=== PATIENT | female | born 1955 | race American Indian/Alaskan Native ===

== ENCOUNTER 2020-09-13 10:29 | Inpatient (IN) | payer MEDICARE ==
[2020-09-13] MEDS ORDERED: PIPERACIL/TAZOBACTA 4.5/NS 100 4.5 GM/100 ML VIAL IV ONE (10:34)
[2020-09-13] MEDS ORDERED: SODIUM CHLORIDE 0.9% 1000 ML IV SOLN IV ONE (10:37)
--- NOTE | 2020-09-13 10:46 | Emergency Department Report ---
ED Altered Mental Status HPI - General Stated Complaint: ALTERED MENTAL STATUS PUI?: No Time Seen by Provider: 09/13/20 10:33 Source: family, EMS, old records reviewed Mode of arrival: Stretcher Limitations: Altered Mental Status - History of Present Illness Initial Comments: Chief complaint: Altered mental status HPI: This is a 64-year-old female with history of Parkinson's disease, [place] syndrome, sacral decubitus ulcer, dementia, cystitis DNR status who presents with lethargy altered mental status low blood sugar, facial droop. Patient is a resident of [facility]. Nursing staff noticed that patient was nonverbal. EMS discovered her laying on her left side. Blood sugar was 33. After receiving dextrose, facial droop resolved. Patient still remained nonverbal. Patient noted to be hypotensive on arrival per EMS. Blood pressure 86/40. According to staff documentation patient had previous surgical debridement of sacral decubitus ulcer. Wound culture positive for Proteus Mirabella's, Streptococcus. Pansensitive organism. Ceftriaxone therapy ordered this month. I obtained additional information from Cleopatra Sudhakar Leslie. Ms. Davis had been at a hospice facility [facility] for one month. She had previously lived with her sister and son. Has been a resident of [facility] 6-7 months ago. Son took patient out of hospice care in order to allow patient to be hospitalized as recommended by SNF nursing staff. Patient stopped eating 2 months ago. Complaint: altered mental status, decreased responsiveness -: unknown (Last known to be at baseline 7 PM last night) Severity: moderate Consistency of Symptoms: waxing and waning Context: other (History of sepsis history of dementia) - Related Data Allergies Allergy/AdvReac Type Severity Reaction Status Date / Time No Known Allergies Allergy Unverified 09/13/20 11:27 ED Review of Systems ROS: Stated complaint: ALTERED MENTAL STATUS Other details as noted in HPI Comment: Unobtainable due to pts medical conditions (Altered mental status) ED Past Medical Hx - Past Medical History Previous Medical History?: Yes Hx Hypertension: Yes Additional medical history: [place] syndrome, Parkinson's disease, dementia, sacral decubitus ulcer - Surgical History Additional Surgical History: Unable to be obtained - Social History Smoking Status: Never Smoker ED Physical Exam - General Limitations: Altered Mental Status General appearance: lethargic, cachectic, other (Appears chronically ill poor eye contact left lateral decubitus position) - Head Head exam: Present: atraumatic, normocephalic - Eye Eye exam: Present: normal appearance - ENT ENT exam: Present: mucous membranes dry - Neck Neck exam: Present: normal inspection, full ROM - Respiratory Respiratory exam: Present: normal lung sounds bilaterally. Absent: respiratory distress, wheezes, rales, rhonchi, accessory muscle use, decreased breath sounds, prolonged expiratory - Cardiovascular Cardiovascular Exam: Present: regular rate, normal rhythm, normal heart sounds - GI/Abdominal GI/Abdominal exam: Present: soft. Absent: distended, tenderness, guarding, rebound, rigid - Extremities Exam Extremities exam: Present: pedal edema - Back Exam Back exam: Present: other (Large stage IV sacral decubitus with copious amount of dark purulent drainage) - Neurological Exam Neurological exam: Present: altered - Psychiatric Psychiatric exam: Present: depressed, flat affect - Skin Skin exam: Present: other (Large stage IV sacral decubitus ulcer with copious dark purulent drainage) ED Course Vital Signs 09/13/20 09/13/20 09/13/20 10:34 10:46 11:01 Temperature Pulse Rate 129 H 114 H 124 H Respiratory 18 16 10 L Rate Blood Pressure 107/77 O2 Sat by Pulse Oximetry 09/13/20 09/13/20 11:15 11:25 Temperature 92.8 F L Pulse Rate 127 H Respiratory 21 Rate Blood Pressure 107/77 O2 Sat by Pulse 100 Oximetry - Lab Data Result diagrams: 09/13/20 12:44 09/13/20 12:44 Lab Results 09/13/20 09/13/20 09/13/20 Range/Units 10:30 11:20 12:44 WBC 5.5 (4.5-11.0) K/mm3 RBC 2.89 L (3.65-5.03) M/mm3 Hgb 7.8 L (10.1-14.3) gm/dl Hct 23.9 L (30.3-42.9) % MCV 83 (79-97) fl MCH 27 L (28-32) pg MCHC 33 (30-34) % RDW 18.8 H (13.2-15.2) % Plt Count 195 (140-440) K/mm3 Add Manual Diff Complete Total Counted 100 Seg Neuts % (Manual) 58.0 (40.0-70.0) % Lymphocytes % (Manual) 37.0 H (13.4-35.0) % Monocytes % (Manual) 5.0 (0.0-7.3) % Nucleated RBC % 5.0 H (0.0-0.9) % Seg Neutrophils # Man 3.2 (1.8-7.7) K/mm3 Band Neutrophils # 0.0 K/mm3 Lymphocytes # (Manual) 2.0 (1.2-5.4) K/mm3 Abs React Lymphs (Man) 0.0 K/mm3 Monocytes # (Manual) 0.3 (0.0-0.8) K/mm3 Eosinophils # (Manual) 0.0 (0.0-0.4) K/mm3 Basophils # (Manual) 0.0 (0.0-0.1) K/mm3 Metamyelocytes # 0.0 K/mm3 Myelocytes # 0.0 K/mm3 Promyelocytes # 0.0 K/mm3 Blast Cells # 0.0 K/mm3 WBC Morphology Not Reportable Hypersegmented Neuts Not Reportable Hyposegmented Neuts Not Reportable Hypogranular Neuts Not Reportable Smudge Cells Not Reportable Toxic Granulation Not Reportable Toxic Vacuolation Not Reportable Dohle Bodies Not Reportable Pelger-Huet Anomaly Not Reportable Susy Rods Not Reportable Platelet Estimate Consistent w auto Clumped Platelets Not Reportable Plt Clumps, EDTA Not Reportable Large Platelets Not Reportable Giant Platelets Not Reportable Platelet Satelliting Not Reportable Plt Morphology Comment Not Reportable RBC Morphology Not Reportable Dimorphic RBCs Not Reportable Polychromasia Not Reportable Hypochromasia Not Reportable Poikilocytosis 1+ Anisocytosis Not Reportable Microcytosis Not Reportable Macrocytosis Not Reportable Spherocytes Not Reportable Pappenheimer Bodies Not Reportable Sickle Cells Not Reportable Target Cells 1+ Tear Drop Cells Not Reportable Ovalocytes Not Reportable Helmet Cells Not Reportable [place] Bodies Not Reportable [place] Rings Not Reportable Cale Cells Not Reportable Bite Cells Not Reportable Crenated Cell Not Reportable Elliptocytes Not Reportable Acanthocytes (Spur) Not Reportable Rouleaux Not Reportable Hemoglobin C Crystals Not Reportable Schistocytes Not Reportable Malaria parasites Not Reportable Danny Bodies Not Reportable Hem Pathologist Commnt No Sodium (137-145) mmol/L Potassium (3.6-5.0) mmol/L Chloride (98-107) mmol/L Carbon Dioxide (22-30) mmol/L Anion Gap mmol/L BUN (7-17) mg/dL Creatinine (0.6-1.2) mg/dL Estimated GFR ml/min BUN/Creatinine Ratio % Glucose (65-100) mg/dL POC Glucose 198 H (70-105) mg/dL Lactic Acid (0.7-2.0) mmol/L Calcium (8.4-10.2) mg/dL Total Bilirubin (0.1-1.2) mg/dL AST (5-40) units/L ALT (7-56) units/L Alkaline Phosphatase (35-129) units/L Total Protein (6.3-8.2) g/dL Albumin (3.9-5) g/dL Albumin/Globulin Ratio % Urine Color Yellow (Yellow) Urine Turbidity Hazy (Clear) Urine pH 5.0 (5.0-7.0) Ur Specific [place] 1.016 (1.003-1.030) Urine Protein <15 mg/dl (Negative) mg/dL Urine Glucose (UA) Neg (Negative) mg/dL Urine Ketones Neg (Negative) mg/dL Urine Blood Neg (Negative) Urine Nitrite Neg (Negative) Urine Bilirubin Neg (Negative) Urine Urobilinogen < 2.0 (<2.0) mg/dL Ur Leukocyte Esterase Neg (Negative) Urine WBC (Auto) 2.0 (0.0-6.0) /HPF Urine RBC (Auto) 1.0 (0.0-6.0) /HPF U Epithel Cells (Auto) 1.0 (0-13.0) /HPF Urine Mucus Few /HPF 09/13/20 09/13/20 Range/Units 12:44 12:44 WBC (4.5-11.0) K/mm3 RBC (3.65-5.03) M/mm3 Hgb (10.1-14.3) gm/dl Hct (30.3-42.9) % MCV (79-97) fl MCH (28-32) pg MCHC (30-34) % RDW (13.2-15.2) % Plt Count (140-440) K/mm3 Add Manual Diff Total Counted Seg Neuts % (Manual) (40.0-70.0) % Lymphocytes % (Manual) (13.4-35.0) % Monocytes % (Manual) (0.0-7.3) % Nucleated RBC % (0.0-0.9) % Seg Neutrophils # Man (1.8-7.7) K/mm3 Band Neutrophils # K/mm3 Lymphocytes # (Manual) (1.2-5.4) K/mm3 Abs React Lymphs (Man) K/mm3 Monocytes # (Manual) (0.0-0.8) K/mm3 Eosinophils # (Manual) (0.0-0.4) K/mm3 Basophils # (Manual) (0.0-0.1) K/mm3 Metamyelocytes # K/mm3 Myelocytes # K/mm3 Promyelocytes # K/mm3 Blast Cells # K/mm3 WBC Morphology Hypersegmented Neuts Hyposegmented Neuts Hypogranular Neuts Smudge Cells Toxic Granulation Toxic Vacuolation Dohle Bodies Pelger-Huet Anomaly Susy Rods Platelet Estimate Clumped Platelets Plt Clumps, EDTA Large Platelets Giant Platelets Platelet Satelliting Plt Morphology Comment RBC Morphology Dimorphic RBCs Polychromasia Hypochromasia Poikilocytosis Anisocytosis Microcytosis Macrocytosis Spherocytes Pappenheimer Bodies Sickle Cells Target Cells Tear Drop Cells Ovalocytes Helmet Cells [place] Bodies [place] Rings Cale Cells Bite Cells Crenated Cell Elliptocytes Acanthocytes (Spur) Rouleaux Hemoglobin C Crystals Schistocytes Malaria parasites Danny Bodies Hem Pathologist Commnt Sodium 160 H (137-145) mmol/L Potassium 3.3 L (3.6-5.0) mmol/L Chloride 125.9 H (98-107) mmol/L Carbon Dioxide 23 (22-30) mmol/L Anion Gap 14 mmol/L BUN 65 H (7-17) mg/dL Creatinine 0.5 L (0.6-1.2) mg/dL Estimated GFR > 60 ml/min BUN/Creatinine Ratio 130 % Glucose 64 L (65-100) mg/dL POC Glucose (70-105) mg/dL Lactic Acid 1.30 (0.7-2.0) mmol/L Calcium 7.3 L (8.4-10.2) mg/dL Total Bilirubin 1.10 (0.1-1.2) mg/dL AST 2763 H (5-40) units/L ALT 452 H (7-56) units/L Alkaline Phosphatase 2059 H (35-129) units/L Total Protein 5.9 L (6.3-8.2) g/dL Albumin 2.4 L (3.9-5) g/dL Albumin/Globulin Ratio 0.7 % Urine Color (Yellow) Urine Turbidity (Clear) Urine pH (5.0-7.0) Ur Specific [place] (1.003-1.030) Urine Protein (Negative) mg/dL Urine Glucose (UA) (Negative) mg/dL Urine Ketones (Negative) mg/dL Urine Blood (Negative) Urine Nitrite (Negative) Urine Bilirubin (Negative) Urine Urobilinogen (<2.0) mg/dL Ur Leukocyte Esterase (Negative) Urine WBC (Auto) (0.0-6.0) /HPF Urine RBC (Auto) (0.0-6.0) /HPF U Epithel Cells (Auto) (0-13.0) /HPF Urine Mucus /HPF - EKG Data -: EKG Interpreted by Id 09/13/20 14:23 EKG obtained 1412 EKG interpreted by la Atrial fibrillation ventricular rate rate [address] elevation prolonged QTC nonspecific T wave pattern - Medical Decision Making 1. Acute metabolic encephalopathy due to sepsis uremia hyponatremia. Upon EMS arrival patient had hypoglycemia and hypotension. Patient received dextrose via EMS. Sepsis protocol initiated. I anticipate improvement of patient's mental status once appropriately resuscitated. Considering patient's end-stage Parkinson's disease, I do not feel extensive neurological evaluation including CT and MRI of the brain would be prudent. I also suspect poor p.o. intake contributing to hypoglycemia. Son explained that patient had stopped eating recently. 2. Infected sacral decubitus ulcer 3. DNR Status: I discussed plan of care with son Mr. Sudhakar Leslie . I had a 20 minute conversation with son. 4. new onset atrial fibrillation: Considering comorbidities supportive care indicated 5. WALDEMAR: vasmotor nephropathy due to volume contraction and sepsis, Critical Care Time: Yes Critical care time in (mins) excluding proc time.: 40 Critical care attestation.: If time is entered above; I have spent that time in minutes in the direct care of this critically ill patient, excluding procedure time. 40 minutes of critical care time excluding procedures were used in the care of the patient. I came immediately to the bedside upon patient's arrival. I obtained history from EMS at the bedside. I discussed treatment plan with the nursing team members. I reviewed electronic record. I sopke extensively with son. Patient required multiple interventions and reassessments. ED Disposition Clinical Impression: Acute kidney injury, Severe dehydration, New onset atrial fibrillation, Septic shock, DNR (do not resuscitate), Sacral decubitus ulcer, stage IV, Infected decubitus ulcer, Decubitus ulcer, stage 4 with infection Disposition: 09 OP ADMIT IP TO THIS HOSP Is pt being admited?: Yes Does the pt Need Aspirin: No Condition: Fair Referrals: PRIMARY CARE, [Primary Care Provider] - 3-5 Days
[2020-09-13] MEDS ORDERED: VANCOMYCIN PHARMACY TO DOSE IV SCH ×2 (11:00→22:00)
[2020-09-13] MEDS ORDERED: VANCOMYCIN 1,000 MG in SODIUM CHLORIDE 0.9% 500 ML 500 ML IV ONE (11:00)
[2020-09-13] MEDS ORDERED: VANCOMYCIN/NS 1 GM/250 ML 1 GM/250 ML BAG IV ONE (11:00)
[2020-09-13 11:26] LABS: Bilirubin,Urine NEG (Negative); Blood,Urine NEG (Negative); Color,Urine Yellow (Yellow); Mucus,Urine FEW /HPF; Protein,Urine <15 mg/dL mg/dL (Negative); Urobilinogen,Urine < 2.0 mg/dL (<2.0)
--- NOTE | 2020-09-13 11:55 | XRay Report ---
CHEST 1 VIEW 09/13/2020 11:18 AM INDICATION / CLINICAL INFORMATION: sepsis. COMPARISON: None available. FINDINGS: SUPPORT DEVICES: None. HEART / MEDIASTINUM: No significant abnormality. LUNGS / PLEURA: No significant pulmonary or pleural abnormality. No pneumothorax. ADDITIONAL FINDINGS: Significant amount of air in the upper abdomen. Some of this could represent air directly into the diaphragm. IMPRESSION: 1. Significant amount of air in the upper abdomen. Some of this could represent pneumoperitoneum, alt ernatively this could represent considerable, diffuse gaseous distention of the bowel in this region. Recommend clinical correlation and further evaluation with CT abdomen pelvis. CRITICAL RESULT: Time of Discovery (HAND WORKER/CDT): 1040 Time of Communication (HAND WORKER/CDT): 1045 Licensed Practitioner Receiving Report: MD Wanda Read-Back Performed: Yes. Signer Name: Romario Aranda MD Signed: 09/13/2020 11:50 AM Workstation Name: [id number]
[2020-09-13 13:20] LABS: Hematocrit 23.9 % (30.3-42.9); Hemoglobin 7.8 gm/dl (10.1-14.3); Mean Corpuscular HGB Conc 33 % (30-34); Mean Corpuscular Volume 83 fl (79-97); Platelet Count 195 K/mm3 (140-440); Red Blood Count 2.89 M/mm3 (3.65-5.03); Red Cell Distribution Width 18.8 % (13.2-15.2)
[2020-09-13] MEDS ORDERED: SODIUM CHLORIDE 0.9% 1000 ML 1,000 ML IV ONE (13:52)
[2020-09-13 14:05] LABS: Alanine Aminotransferase 452 units/L (7-56); Albumin 2.4 g/dL (3.9-5); BUN/Creatinine Ratio 130; Blood Urea Nitrogen 65 mg/dL (7-17); Calcium 7.3 mg/dL (8.4-10.2); Hemolysis Index 5
[2020-09-13 14:08] LABS: Platelet Estimate Consistent w Auto; Poikilocytosis 1+; Target Cells 1+; Total Cells Counted 100
--- NOTE | 2020-09-13 16:32 | Cat Scan Report ---
CT CHEST, ABDOMEN, AND PELVIS WITH CONTRAST INDICATION / CLINICAL INFORMATION: Malaise. Hypocalcemia. TECHNIQUE: Axial CT images were obtained through the chest, abdomen, and pelvis after IV contrast. Al l CT scans at this location are performed using CT dose reduction for ALARA by means of automated exp osure control. COMPARISON: None available. FINDINGS: HEART/VASCULAR STRUCTUES: Incidental bilateral pulmonary emboli right greater than left with clot bur den being moderate. MEDIASTINUM / VIVI: No significant abnormality. PLEURA: No pleural effusion. No pneumothorax. LUNGS: No acute air space or interstitial disease. ADDITIONAL CHEST FINDINGS: Diffuse soft tissue anasarca. LIVER: Not well evaluated due to arterial phase of injection. Mild heterogeneity. This is possibly du e to passive venous congestion. GALLBLADDER: No significant abnormality. BILE DUCTS: No significant abnormality. PANCREAS: No significant abnormality. SPLEEN: No significant abnormality. ADRENALS: No significant abnormality. RIGHT KIDNEY / URETER: No significant abnormality. LEFT KIDNEY / URETER: No significant abnormality. STOMACH and SMALL BOWEL: No significant abnormality. COLON: Prominently distended. Suspected fecal impaction. APPENDIX: Not evaluated. PERITONEUM: No free fluid. No free air. No fluid collection. LYMPH NODES: No significant adenopathy. VASCULAR STRUCTURES: No significant abnormality. URINARY BLADDER: No significant abnormality. REPRODUCTIVE ORGANS: No significant abnormality. ADDITIONAL FINDINGS: Extensive soft tissue anasarca. Decubitus ulcer posteriorly. Mildly sclerotic un derlying bone may represent osteomyelitis. Soft tissue air and small amount of air along the inferior aspect of the thecal sac. No well-defined collection SKELETAL SYSTEM: No significant abnormality. IMPRESSION: 1. Incidental bilateral pulmonary emboli. 2. Prominent colonic ileus with possible fecal impaction. 3. Prominent diffuse soft tissue anasarca. 4. Liver not well evaluated. Suspect passive venous congestion. 5. Decubitus ulcer with suspected chronic underlying osteomyelitis. Mild soft tissue air and air tommy g the inferior aspect of the thecal sac. CRITICAL RESULT: Time of Discovery: 3:15 PM Time of Communication: 3:20 PM Licensed Practitioner Receiving Report: Dr. Gilliam Read Back Performed: Yes. Signer Name: Rigo Fleming MD Signed: 09/13/2020 4:28 PM Workstation Name: [email or web address]
[2020-09-13 20:05] VITALS: BP 87/54
--- NOTE | 2020-09-13 21:29 | History and Physical Report ---
History of Present Illness Date of examination: 09/13/20 Date of admission: 09/13/20 16:47 Chief complaint: AMS History of present illness: 64-year-old female with severe history of parkinsonism for the last 25 years and progressively worsening brought in by EMS from assisted for decreased responsiveness. Patient at the bedside. Patient has been progressively deteriorating over the last 25 years. Was made hospice in the last few months and then hospice was discontinued and was admitted long term facility at [facility]. Patient has sacral decubitus ulcers with wound debridement. Patient has been having very poor p.o. intake and severe loss of weight over the last 6 months. The patient and the son decided not to have a PEG tube or any other int ervention regarding the nutrition. Now patient is with decreased responsiveness and not alert or oriented. Patient is contracted all over and looks cachectic. Sacral decubitus ulcers present. - Past Medical History Previous Medical History?: Yes Hx Hypertension: Yes Severe Parkinson's disease Sacral decubitus ulcers Malnutrition Cachexia Poor p.o. 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 Review of Systems ROS: Patient is unresponsive Multiple contractures Decreased breathing Patient is DNR Medications and Allergies Allergies Allergy/AdvReac Type Severity Reaction Status Date / Time No Known Allergies Allergy Unverified 09/13/20 11:27 Active Meds: Active Medications Vancomycin HCl 500 mg/ Sodium (Chloride) 110 mls @ 66.667 mls/hr IV Q12H DIAZ Exam - Constitutional Vitals: Temp Pulse Resp BP Pulse Ox 92.8 F L 101 H 18 87/54 100 09/13/20 11:25 09/13/20 19:45 09/13/20 19:45 09/13/20 19:45 09/13/20 19:31 General appearance: Present: mild distress, cachectic - EENT Eyes: Present: PERRL ENT: hearing intact, clear oral mucosa - Neck Neck: Present: supple, normal ROM - Respiratory Respiratory effort: normal Respiratory: bilateral: CTA - Cardiovascular Heart rate: 70 Rhythm: regular Heart Sounds: Present: S1 & S2. Absent: rub, click - Extremities Extremities: pulses symmetrical, No edema, abnormal (Contractures in both upper extremities and lower extremities) Extremity abnormal: edema (Pedal edema present), other (Contractures in both upper and lower extremities) Peripheral Pulses: within normal limits - Abdominal General gastrointestinal: Present: soft, non-tender, non-distended, normal bowel sounds Female genitourinary: Present: normal - Integumentary Integumentary: Present: clear, warm, dry - Musculoskeletal Musculoskeletal: generalized weakness, other (Multiple contractures) - Psychiatric Psychiatric: other (Unresponsive and lethargic) - Neurologic Neurologic: other (unresponsive and lethargic) Results - Labs CBC & Chem 7: 09/13/20 12:44 09/13/20 12:44 Labs: Laboratory Last Values WBC 5.5 K/mm3 (4.5-11.0) 09/13/20 12:44 RBC 2.89 M/mm3 (3.65-5.03) L 09/13/20 12:44 Hgb 7.8 gm/dl (10.1-14.3) L 09/13/20 12:44 Hct 23.9 % (30.3-42.9) L 09/13/20 12:44 MCV 83 fl (79-97) 09/13/20 12:44 MCH 27 pg (28-32) L 09/13/20 12:44 MCHC 33 % (30-34) 09/13/20 12:44 RDW 18.8 % (13.2-15.2) H 09/13/20 12:44 Plt Count 195 K/mm3 (140-440) 09/13/20 12:44 Add Manual Diff Complete 09/13/20 12:44 Total Counted 100 09/13/20 12:44 Seg Neuts % (Manual) 58.0 % (40.0-70.0) 09/13/20 12:44 Lymphocytes % (Manual) 37.0 % (13.4-35.0) H 09/13/20 12:44 Monocytes % (Manual) 5.0 % (0.0-7.3) 09/13/20 12:44 Nucleated RBC % 5.0 % (0.0-0.9) H 09/13/20 12:44 Seg Neutrophils # Man 3.2 K/mm3 (1.8-7.7) 09/13/20 12:44 Band Neutrophils # 0.0 K/mm3 09/13/20 12:44 Lymphocytes # (Manual) 2.0 K/mm3 (1.2-5.4) 09/13/20 12:44 Abs React Lymphs (Man) 0.0 K/mm3 09/13/20 12:44 Monocytes # (Manual) 0.3 K/mm3 (0.0-0.8) 09/13/20 12:44 Eosinophils # (Manual) 0.0 K/mm3 (0.0-0.4) 09/13/20 12:44 Basophils # (Manual) 0.0 K/mm3 (0.0-0.1) 09/13/20 12:44 Metamyelocytes # 0.0 K/mm3 09/13/20 12:44 Myelocytes # 0.0 K/mm3 09/13/20 12:44 Promyelocytes # 0.0 K/mm3 09/13/20 12:44 Blast Cells # 0.0 K/mm3 09/13/20 12:44 WBC Morphology Not Reportable 09/13/20 12:44 Hypersegmented Neuts Not Reportable 09/13/20 12:44 Hyposegmented Neuts Not Reportable 09/13/20 12:44 Hypogranular Neuts Not Reportable 09/13/20 12:44 Smudge Cells Not Reportable 09/13/20 12:44 Toxic Granulation Not Reportable 09/13/20 12:44 Toxic Vacuolation Not Reportable 09/13/20 12:44 Dohle Bodies Not Reportable 09/13/20 12:44 Pelger-Huet Anomaly Not Reportable 09/13/20 12:44 Susy Rods Not Reportable 09/13/20 12:44 Platelet Estimate Consistent w auto 09/13/20 12:44 Clumped Platelets Not Reportable 09/13/20 12:44 Plt Clumps, EDTA Not Reportable 09/13/20 12:44 Large Platelets Not Reportable 09/13/20 12:44 Giant Platelets Not Reportable 09/13/20 12:44 Platelet Satelliting Not Reportable 09/13/20 12:44 Plt Morphology Comment Not Reportable 09/13/20 12:44 RBC Morphology Not Reportable 09/13/20 12:44 Dimorphic RBCs Not Reportable 09/13/20 12:44 Polychromasia Not Reportable 09/13/20 12:44 Hypochromasia Not Reportable 09/13/20 12:44 Poikilocytosis 1+ 09/13/20 12:44 Anisocytosis Not Reportable 09/13/20 12:44 Microcytosis Not Reportable 09/13/20 12:44 Macrocytosis Not Reportable 09/13/20 12:44 Spherocytes Not Reportable 09/13/20 12:44 Pappenheimer Bodies Not Reportable 09/13/20 12:44 Sickle Cells Not Reportable 09/13/20 12:44 Target Cells 1+ 09/13/20 12:44 Tear Drop Cells Not Reportable 09/13/20 12:44 Ovalocytes Not Reportable 09/13/20 12:44 Helmet Cells Not Reportable 09/13/20 12:44 [place] Bodies Not Reportable 09/13/20 12:44 [place] Rings Not Reportable 09/13/20 12:44 T[place]man Cells Not Reportable 09/13/20 12:44 Bite Cells Not Reportable 09/13/20 12:44 Crenated Cell Not Reportable 09/13/20 12:44 Elliptocytes Not Reportable 09/13/20 12:44 Acanthocytes (Spur) Not Reportable 09/13/20 12:44 Rouleaux Not Reportable 09/13/20 12:44 Hemoglobin C Crystals Not Reportable 09/13/20 12:44 Schistocytes Not Reportable 09/13/20 12:44 Malaria parasites Not Reportable 09/13/20 12:44 Danny Bodies Not Reportable 09/13/20 12:44 Hem Pathologist Commnt No 09/13/20 12:44 Sodium 160 mmol/L (137-145) H 09/13/20 12:44 Potassium 3.3 mmol/L (3.6-5.0) L 09/13/20 12:44 Chloride 125.9 mmol/L (98-107) H 09/13/20 12:44 Carbon Dioxide 23 mmol/L (22-30) 09/13/20 12:44 Anion Gap 14 mmol/L 09/13/20 12:44 BUN 65 mg/dL (7-17) H 09/13/20 12:44 Creatinine 0.5 mg/dL (0.6-1.2) L 09/13/20 12:44 Estimated GFR > 60 ml/min 09/13/20 12:44 BUN/Creatinine Ratio 130 % 09/13/20 12:44 Glucose 64 mg/dL (65-100) L 09/13/20 12:44 POC Glucose 198 mg/dL (70-105) H 09/13/20 10:30 Lactic Acid 1.30 mmol/L (0.7-2.0) 09/13/20 12:44 Calcium 7.3 mg/dL (8.4-10.2) L 09/13/20 12:44 Total Bilirubin 1.10 mg/dL (0.1-1.2) 09/13/20 12:44 AST 2763 units/L (5-40) H 09/13/20 12:44 ALT 452 units/L (7-56) H 09/13/20 12:44 Alkaline Phosphatase 2059 units/L (35-129) H 09/13/20 12:44 Total Protein 5.9 g/dL (6.3-8.2) L 09/13/20 12:44 Albumin 2.4 g/dL (3.9-5) L 09/13/20 12:44 Albumin/Globulin Ratio 0.7 % 09/13/20 12:44 Urine Color Yellow (Yellow) 09/13/20 11:20 Urine Turbidity Hazy (Clear) 09/13/20 11:20 Urine pH 5.0 (5.0-7.0) 09/13/20 11:20 Ur Specific [place] 1.016 (1.003-1.030) 09/13/20 11:20 Urine Protein <15 mg/dl mg/dL (Negative) 09/13/20 11:20 Urine Glucose (UA) Neg mg/dL (Negative) 09/13/20 11:20 Urine Ketones Neg mg/dL (Negative) 09/13/20 11:20 Urine Blood Neg (Negative) 09/13/20 11:20 Urine Nitrite Neg (Negative) 09/13/20 11:20 Urine Bilirubin Neg (Negative) 09/13/20 11:20 Urine Urobilinogen < 2.0 mg/dL (<2.0) 09/13/20 11:20 Ur Leukocyte Esterase Neg (Negative) 09/13/20 11:20 Urine WBC (Auto) 2.0 /HPF (0.0-6.0) 09/13/20 11:20 Urine RBC (Auto) 1.0 /HPF (0.0-6.0) 09/13/20 11:20 U Epithel Cells (Auto) 1.0 /HPF (0-13.0) 09/13/20 11:20 Urine Mucus Few /HPF 09/13/20 11:20 Microbiology: Microbiology 09/13/20 12:44 Peripheral/Venous Blood Culture - Preliminary Culture in Progress 09/13/20 12:44 Peripheral/Venous Blood Culture - Preliminary Culture in Progress - Imaging and Cardiology Imaging and Cardiology: CT of the abdomen with contrast ADDITIONAL FINDINGS: Extensive soft tissue anasarca. Decubitus ulcer posteriorly. Mildly sclerotic underlying bone may represent osteomyelitis. Soft tissue air and small amount of air along the inferior aspect of the thecal sac. No well-defined collection SKELETAL SYSTEM: No significant abnormality. IMPRESSION: 1. Incidental bilateral pulmonary emboli. 2. Prominent colonic ileus with possible fecal impaction. 3. Prominent diffuse soft tissue anasarca. 4. Liver not well evaluated. Suspect passive venous congestion. 5. Decubitus ulcer with suspected chronic underlying osteomyelitis. Mild soft tissue air and air along the inferior aspect of the thecal sac. CRITICAL RESULT: Time of Discovery: 3:15 PM Time of Communication: 3:20 PM Licensed Practitioner Receiving Report: Dr. Gilliam Read Back Performed: Yes. Assessment and Plan Advance Directives: Yes (DNR) VTE prophylaxis?: Chemical Plan of care discussed with patient/family: Yes - Patient Problems (1) Acute metabolic encephalopathy Status: Acute Plan to address problem: Multifactorial including severe malnutrition hypernatremia and sepsis Supportive care IV antibiotics and IV fluids (2) Hypernatremia Status: Acute Plan to address problem: D5W for now (3) Sepsis Status: Acute Qualifiers: Sepsis type: sepsis due to unspecified organism Severe sepsis shock status: with septic shock Plan to address problem: Patient is hypertensive Being admitted to the floor because of patient is DNR IV antibiotics Sacral decubitus ulcer care Poor prognosis (4) Parkinsonism Status: Chronic Qualifiers: Parkinsonism type: primary Parkinsonism Qualified Code(s): G20 - Parkinson's disease Plan to address problem: Severe with multiple contractures Patient not on any antiparkinsonian drugs (5) Malnutrition Status: Chronic Qualifiers: Protein-calorie malnutrition severity: severe Plan to address problem: Dietitian consult and dietary supplements Patient has pedal edema secondary to hypoalbuminemia (6) Decubitus ulcer, stage 4 with infection Status: Acute Plan to address problem: Wound care and IV antibiotics (7) DNR (do not resuscitate) Status: Chronic Plan to address problem: DNR status Discussed with son and explained the prognosis
[2020-09-13] MEDS ORDERED: ONDANSETRON 4 MG/2 ML INJ IV PRN (21:30)
[2020-09-13] MEDS ORDERED: MORPHINE 2 MG/1 ML INJ IV PRN (21:30)
[2020-09-13] MEDS ORDERED: METOCLOPRAMIDE 10 MG/2 ML INJ IV PRN (21:30)
[2020-09-13] MEDS ORDERED: ACETAMINOPHEN 325 MG TAB PO PRN (21:30)
[2020-09-13] MEDS ORDERED: ENOXAPARIN 40 MG/0.4 ML INJ SUB-Q SCH (22:00)
[2020-09-13] MEDS ORDERED: FAMOTIDINE 20 MG/2 ML INJ IV SCH (22:00)
[2020-09-13] MEDS ORDERED: DEXTROSE 5% IN WATER 1,000 ML IV SCH (22:00)
[2020-09-13] MEDS ORDERED: HEPARIN 5,000 UNIT/1 ML VIAL SUB-Q SCH (22:00)
--- NOTE | 2020-09-13 23:13 | Death Note ---
Note Date of : 09/13/20 Time of : 22:40 Time Pronounced: 22:40 - Preliminary Cause of (problem) (1) Cardiopulmonary arrest Preliminary cause of 64-year-old female with history of Parkinson's disease, [place] syndrome, sacral decubitus ulcer, dementia, cystitis DNR status who presents with lethargy altered mental status low blood sugar, facial droop. Patient is a resident of [facility]. Nursing staff noticed that patient was nonverbal. EMS discovered her laying on her left side. Blood sugar was 33. After receiving dextrose, facial droop resolved. Patient still remained nonverbal. Patient noted to be hypotensive on arrival per EMS. Blood pressure 86/40. Called by the nurse that the patient is not breathing. I examined the patient. Patient is pulseless no reflex no BP. Patient at 10:40 PM on 09/13/2020 due to cardiopulmonary arrest. Patient is DNR. Prognosis was poor. Patient son at the bedside.
[2020-09-14] MEDS ORDERED: AMPICILLIN/SULBACTA 3GM/100ML 3 GM/100 ML BAG IV SCH
[2020-09-14] MEDS ORDERED: VANCOMYCIN 500 MG in SODIUM CHLORIDE 0.9% 100 ML IV SCH (02:00)
--- NOTE | 2020-09-15 09:32 | Electrocardiograph Report ---
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
--- NOTE | 2020-09-16 00:03 | Death Summary ---
Summary - Providers Date of service: 09/14/20 Consults: 09/13/20 21:30 Consult to Physician [CONS] Routine Comment: Consulting Provider: CÉSAR FENG Physician Instructions: Reason For Exam: Transaminitis 09/13/20 21:51 Consult to Wound/ET Nurse [CONS] Routine Reason For Exam: wound eval 09/13/20 21:52 Consult to Dietitian/Nutrition [CONS] Routine Physician Instructions: Reason For Exam: Severe malnutrition Reason for Consult: Pt needs oral supplement Attending: ELISEO POOL - summary Date of admission: 09/13/20 16:47 Date of : 09/14/20 Reason for admission: Sepsis, acute metabolic encephalopathy, hypernatremia Significant findings: Severely cachectic and unresponsive individual Procedures/treatments rendered: IV fluids IV antibiotics and wound care Pertinent studies: CT of the abdomen and pelvis - Final diagnosis (1) Acute metabolic encephalopathy Note: Final diagnosis: (2) Hypernatremia Note: Final diagnosis: (3) Sepsis Qualifiers: Sepsis type: sepsis due to unspecified organism Severe sepsis shock status: with septic shock Note: Final diagnosis: (4) Parkinsonism Qualifiers: Parkinsonism type: primary Parkinsonism Qualified Code(s): G20 - Parkinson's disease Note: Final diagnosis: (5) Malnutrition Qualifiers: Protein-calorie malnutrition severity: severe Note: Final diagnosis: (6) Decubitus ulcer, stage 4 with infection Note: Final diagnosis: (7) DNR (do not resuscitate) Note: Final diagnosis:
== END 2020-09-14 01:45 | DRG 871 ==
LOC: ED 10:29 → OBSVTOIN 16:47 → 3A 16:47
PROVIDERS: ADMIT Internal Medicine; ATTEND Internal Medicine
DX: A41.9 Sepsis, unspecified organism (principal); L89.154 Pressure ulcer of sacral region, stage 4; I26.99 Other pulmonary embolism without acute cor pulmonale; G93.41 Metabolic encephalopathy; R65.21 Severe sepsis with septic shock; N17.0 Acute kidney failure with tubular necrosis; E43 Unspecified severe protein-calorie malnutrition; K59.39 Other megacolon; E87.0 Hyperosmolality and hypernatremia; N30.00 Acute cystitis without hematuria; I48.91 Unspecified atrial fibrillation; E86.0 Dehydration; Z66 Do not resuscitate; E88.09 Other disorders of plasma-protein metabolism, not elsewhere classified; K56.41 Fecal impaction; G20 Parkinson's disease; F02.80 Dementia in other diseases classified elsewhere, unspecified severity, without behavioral disturbance, psychotic disturbance, mood disturbance, and anxiety; L89.159 Pressure ulcer of sacral region, unspecified stage; I95.9 Hypotension, unspecified; Z79.899 Other long term (current) drug therapy; Z79.891 Long term (current) use of opiate analgesic; Z79.01 Long term (current) use of anticoagulants
CPT/HCPCS: 36415; 71045; 71260; 74177; 80053; 81001; 82140; 82962; 83036; 85007; 85025; 87040; 93005; 96365; G0378; J2543; J3370; J7030; J7040; Q9967